=== PATIENT | male | born 1995 | race Caucasian/White ===

== ENCOUNTER 2021-06-20 20:45 | Emergency (ER) | payer SELFPAY ==
--- NOTE | 2021-06-20 23:00 | NUR ---
PATIENT LEFT WITHOUT BEING SEEN BY DR. ARZATE. NO FURTHER CARE PROVIDED FOR PATIENT.
== END 2021-06-20 23:00 | disposition left against medical advice (07) ==
LOC: MED 21:00
DX: Z53.21 Procedure and treatment not carried out due to patient leaving prior to being seen by health care provider (principal)